=== PATIENT | female | born 1995 | race Caucasian/White ===

== ENCOUNTER 2017-04-24 23:30 | Emergency (ER) | payer OTHER ==
[2017-04-25 01:07] VITALS: BP 116/73; PULSE 100; BMI 28.1
[2017-04-25] MEDS ORDERED: PIPERACILLIN/TAZOB 3.375 GM 3.375 GM in DEXTROSE 5%-WATER - 50 ML IVPB ONE (01:12)
[2017-04-25] MEDS ORDERED: SULFAMETHOXAZOLE/TRIMETHOPRIM 800MG/160MG D.S. TABLET PO ONE (01:12)
--- NOTE | 2017-04-25 01:29 | PDOC ---
History of Present Illness - General History Source: Patient Exam Limitations: No Limitations - History of Present Illness Initial Comments: 04/25/17 01:38 Patient is a 21 year old female with a significant past medical history of asthma and diabetes, who presents to the ED with complaining of right inner thigh pustule that began developing 3 days ago. Patient report noticing the pustule on her right inner thigh 3 days ago with pain. She reports intermittent drainage from the pustule. Patient states she has been to the ED for this complaint once before. Denies fever, chills. Denies chest pain, SOB. Denies nausea, vomiting. Denies contact with sick individuals. Denies any out of state travel. Denies any other symptoms. Allergies: None Social history: No smoking. No alcohol. No illicit drugs. Surgical history: None PMD: None <Aaron Laughlin - Last Filed: 04/25/17 01:38> <Maribeth Hampton - Last Filed: 04/25/17 01:41> <Jimmie Rod - Last Filed: 04/25/17 03:54> - General Chief Complaint: Wound Infection Stated Complaint: INFECTION Time Seen by Provider: 04/25/17 01:13 Past History <Aaron Laughlin - Last Filed: 04/25/17 01:38> - Past Medical History Asthma: Yes Diabetes: Yes (IDDM, PUMP) - Reproductive History (#): 1 Para: 0 - Immunization History Immunization Up to Date: Yes - Suicide/Smoking/Psychosocial Hx Smoking History: Never smoked Hx Alcohol Use: No Drug/Substance Use Hx: No Substance Use Type: None <Maribeth Hampton - Last Filed: 04/25/17 01:41> <Jimmie Rod - Last Filed: 04/25/17 03:54> - Past Medical History Allergies/Adverse Reactions: Allergies Allergy/AdvReac Type Severity Reaction Status Date / Time No Known Allergies Allergy Verified 03/14/16 21:28 Home Medications: Ambulatory Orders Insulin Pump Cartridge [Cartridge Stamped] 1 each SQ DAILY 12/24/13 Clindamycin [Cleocin -] 300 mg PO TID #30 capsule 04/25/17 Ibuprofen 800 mg PO TID #30 tablet 04/25/17 Oxycodone HCl/Acetaminophen [Percocet 5-325 mg Tablet] 1 - 2 tab PO Q6H #20 tablet MDD 4 04/25/17 Review of Systems - Review of Systems Able to Perform ROS?: Yes Comments:: 04/25/17 01:39 CONSTITUTIONAL: Absent: fever, chills, diaphoresis, generalized weakness, malaise, loss of appetite HEENT: Absent: rhinorrhea, nasal congestion, throat pain, throat swelling, difficulty swallowing, mouth swelling, ear pain, eye pain, visual Changes CARDIOVASCULAR: Absent: chest pain, syncope, palpitations, irregular heart rate, lightheadedness , peripheral edema RESPIRATORY: Absent: cough, shortness of breath, dyspnea with exertion, orthopnea, wheezing, stridor, hemoptysis GASTROINTESTINAL: Absent: abdominal pain, abdominal distension, nausea, vomiting, diarrhea, constipation, melena, hematochezia GENITOURINARY: Absent: dysuria, frequency, urgency, hesitancy, hematuria, flank pain, genital pain MUSCULOSKELETAL: Absent: myalgia, arthralgia, joint swelling SKIN: + left leg Pustules Absent: rash, itching, pallor HEMATOLOGIC/IMMUNOLOGIC: Absent: easy bleeding, easy bruising, lymphadenopathy, frequent infections ENDOCRINE: Absent: unexplained weight gain, unexplained weight loss, heat intolerance, cold intolerance NEUROLOGIC: Absent: headache, focal weakness or paresthesias, dizziness, unsteady gait, seizure, mental status changes, bladder or bowel incontinence PSYCHIATRIC: Absent: anxiety, depression, suicidal or homicidal ideation, hallucinations. All Other Systems: Reviewed and Negative <Aaron Laughlin - Last Filed: 04/25/17 01:38> *Physical Exam - Vital Signs Last Vital Signs Temp Pulse Resp BP Pulse Ox 98.7 F 100 H 18 116/73 100 04/25/17 01:05 04/25/17 01:05 04/25/17 01:05 04/25/17 01:05 04/25/17 01:05 - Physical Exam Comments: 04/25/17 01:39 GENERAL: Well developed, well nourished. Awake and alert. No acute distress. HEENT: Normocephalic, atraumatic. PERRLA, EOMI. No conjunctival pallor. Sclera are non- icteric. Moist mucous membranes. Oropharynx is clear. NECK: Supple. Full ROM. No JVD. Carotid pulses 2+ and symmetric, without bruits. No thyromegaly. No lymphadenopathy. CARDIOVASCULAR: Regular rate and rhythm. No murmurs, rubs, or gallops. Distal pulses are 2+ and symmetric. PULMONARY: No evidence of respiratory distress. Lungs clear to auscultation bilaterally. No wheezing, rales or rhonchi. ABDOMINAL: Soft. Non-tender. Non-distended. No rebound or guarding. No organomegaly. Normoactive bowel sounds. MUSCULOSKELETAL Normal range of motion at all joints. No bony deformities or tenderness. No CVA tenderness. EXTREMITIES: +Inner right thigh 2 cm pustule. No cyanosis. No clubbing. No edema. No calf tenderness. SKIN: Warm and dry. Normal capillary refill. No rashes. No jaundice. NEUROLOGICAL: Alert, awake, appropriate. Cranial nerves 2-12 intact. No deficits to light touch and temperature in face, upper extremities and lower extremities. No motor deficits in the in face, upper extremities and lower extremities. Normoreflexic in the upper and lower extremities. Normal speech. Toes are down-going bilaterally. Gait is normal without ataxia. PSYCHIATRIC: Cooperative. Good eye contact. Appropriate mood and affect. <Aaron Laughlin - Last Filed: 04/25/17 01:38> - Vital Signs Last Vital Signs Temp Pulse Resp BP Pulse Ox 98.7 F 100 H 18 116/73 100 04/25/17 01:05 04/25/17 01:05 04/25/17 01:05 04/25/17 01:05 04/25/17 01:05 <Maribeth Hampton - Last Filed: 04/25/17 01:41> - Vital Signs Last Vital Signs Temp Pulse Resp BP Pulse Ox 98.5 F 100 H 18 116/73 100 04/25/17 03:45 04/25/17 01:05 04/25/17 01:05 04/25/17 01:05 04/25/17 01:05 <Jimmie Rod - Last Filed: 04/25/17 03:54> ED Treatment Course - LABORATORY CBC & Chemistry Diagram: 04/25/17 01:30 04/25/17 01:30 <Aaron Laughlin - Last Filed: 04/25/17 01:38> - LABORATORY CBC & Chemistry Diagram: 04/25/17 01:30 04/25/17 01:30 <Maribeth Hampton - Last Filed: 04/25/17 01:41> - LABORATORY CBC & Chemistry Diagram: 04/25/17 01:30 04/25/17 01:30 - ADDITIONAL ORDERS Additional order review: Laboratory Results 04/25/17 01:30 Sodium 136 Potassium 3.9 Chloride 100 Carbon Dioxide 28 Anion Gap 8 BUN 8 D Creatinine 0.7 Creat Clearance w eGFR > 60 Random Glucose 245 H D Calcium 8.7 Total Bilirubin 0.6 D AST 8 L ALT 12 D Alkaline Phosphatase 79 Total Protein 7.1 Albumin 3.5 04/25/17 01:30 RBC 4.55 MCV 86.7 MCHC 33.7 RDW 12.9 MPV 9.7 Neutrophils % 72.9 Lymphocytes % 19.7 Monocytes % 4.5 Eosinophils % 2.4 Basophils % 0.5 - Medications Given in the ED: ED Medications Discontinued Medications Generic Name Dose Route Start Last Admin Trade Name Freq PRN Reason Stop Dose Admin Piperacillin Sod/Tazobactam 50 mls @ 100 mls/hr 04/25/17 01:12 04/25/17 01:45 Sod 3.375 gm/ Dextrose IVPB 04/25/17 01:41 100 mls/hr ONCE ONE Administration Protocol Trimethoprim/Sulfamethoxazole 1 each 04/25/17 01:12 04/25/17 01:45 Bactrim Ds - PO 04/25/17 01:13 1 each ONCE ONE Administration <Jimmie Rod - Last Filed: 04/25/17 03:54> Medical Decision Making - Medical Decision Making 04/25/17 01:41 21 yo female IDDM p/w with rt inner thigh pustule that starting to drain afebrile here plan IV antibiotics/labs <Maribeth Hampton - Last Filed: 04/25/17 01:41> *DC/Admit/Observation/Transfer - Attestations Scribe Attestion: 04/25/17 01:39 Documentation prepared by Aaron Laughlin, acting as certified medical dosimetrist for Maribeth Hampton MD/DO. <Aaron Laughlin - Last Filed: 04/25/17 01:38> <Maribeth Hampton - Last Filed: 04/25/17 01:41> - Discharge Dispostion Admit: No <Jimmie Rod - Last Filed: 04/25/17 03:54> Diagnosis at time of Disposition: Abscess of right thigh - Discharge Dispostion Disposition: HOME Condition at time of disposition: Stable - Prescriptions Prescriptions: Clindamycin [Cleocin -] 300 mg PO TID #30 capsule Ibuprofen 800 mg PO TID #30 tablet Oxycodone HCl/Acetaminophen [Percocet 5-325 mg Tablet] 1 - 2 tab PO Q6H #20 tablet MDD 4 - Patient Instructions Printed Discharge Instructions: DI for Wound Infection
[2017-04-25] MEDS ORDERED: PIPERACILLIN/TAZOB 3.375 GM 50 ML IVPB ONE (01:38)
[2017-04-25] MEDS ORDERED: SULFAMETHOXAZOLE/TRIMETHOPRIM 800MG/160MG D.S. TABLET ONE (01:38)
[2017-04-25 01:44] LABS: BASOPHIL 0.5 % (0-2.0); EOSINOPHIL 2.4 % (0-4.5); MCH 29.2 pg (25.7-33.7); MCHC 33.7 g/dl (32.0-36.0); MEAN CELL VOLUME 86.7 fl (80-96); MEAN PLT VOLUME 9.7 fl (7.5-11.1); NEUTROPHILS 72.9 % (42.8-82.8); PLATELET COUNT 236 K/MM3 (134-434); RDW 12.9 % (11.6-15.6); WHITE BLOOD COUNT 18.1 K/mm3 (4.0-10.0)
[2017-04-25] MEDS ORDERED: ACETAMINOPHEN 325 MG TABLET (FP) ONE (01:44)
[2017-04-25] MEDS ORDERED: MAG HYDROX/AL HYDROX/SIMETH 30 ML UNIT-DOSE CUP ONE (02:09)
[2017-04-25 02:10] LABS: ALBUMIN 3.5 g/dl (3.4-5.0); ALK PHOS 79 U/L (45-117); ANION GAP 8 (8-16); BILIRUBIN,TOTAL 0.6 mg/dL (0.2-1.0); CALCIUM 8.7 mg/dL (8.5-10.1); CO2 28 mmol/L (21-32); CREATININE 0.7 mg/dL (0.55-1.02); GLUCOSE,RANDOM 245 mg/dL (74-106); SGOT/AST 8 U/L (15-37); SGPT/ALT 12 U/L (12-78); TOT PROT 7.1 g/dl (6.4-8.2)
[2017-04-25 03:46] VITALS: TEMP 98.5
--- NOTE | 2017-04-25 03:55 | PDOC ---
*Physical Exam - Vital Signs Last Vital Signs Temp Pulse Resp BP Pulse Ox 98.5 F 100 H 18 116/73 100 04/25/17 03:45 04/25/17 01:05 04/25/17 01:05 04/25/17 01:05 04/25/17 01:05 ED Treatment Course - LABORATORY CBC & Chemistry Diagram: 04/25/17 01:30 04/25/17 01:30 - ADDITIONAL ORDERS Additional order review: Laboratory Results 04/25/17 01:30 Sodium 136 Potassium 3.9 Chloride 100 Carbon Dioxide 28 Anion Gap 8 BUN 8 D Creatinine 0.7 Creat Clearance w eGFR > 60 Random Glucose 245 H D Calcium 8.7 Total Bilirubin 0.6 D AST 8 L ALT 12 D Alkaline Phosphatase 79 Total Protein 7.1 Albumin 3.5 04/25/17 01:30 RBC 4.55 MCV 86.7 MCHC 33.7 RDW 12.9 MPV 9.7 Neutrophils % 72.9 Lymphocytes % 19.7 Monocytes % 4.5 Eosinophils % 2.4 Basophils % 0.5 - Medications Given in the ED: ED Medications Discontinued Medications Generic Name Dose Route Start Last Admin Trade Name Freq PRN Reason Stop Dose Admin Piperacillin Sod/Tazobactam 50 mls @ 100 mls/hr 04/25/17 01:12 04/25/17 01:45 Sod 3.375 gm/ Dextrose IVPB 04/25/17 01:41 100 mls/hr ONCE ONE Administration Protocol Trimethoprim/Sulfamethoxazole 1 each 04/25/17 01:12 04/25/17 01:45 Bactrim Ds - PO 04/25/17 01:13 1 each ONCE ONE Administration *DC/Admit/Observation/Transfer Diagnosis at time of Disposition: Abscess of right thigh - Discharge Dispostion Disposition: HOME Condition at time of disposition: Stable Admit: No - Prescriptions Prescriptions: Clindamycin [Cleocin -] 300 mg PO TID #30 capsule Ibuprofen 800 mg PO TID #30 tablet Oxycodone HCl/Acetaminophen [Percocet 5-325 mg Tablet] 1 - 2 tab PO Q6H #20 tablet MDD 4 - Referrals Referrals: Kendra Sherman MD [Primary Care Provider] - - Patient Instructions Printed Discharge Instructions: DI for Wound Infection - Post Discharge Activity Work/School Note: Back to Work
== END 2017-04-25 04:07 | disposition home or self-care (01) ==
LOC: JER 23:30
DX: L02.415 Cutaneous abscess of right lower limb (principal); E10.9 Type 1 diabetes mellitus without complications; Z79.4 Long term (current) use of insulin; Z96.41 Presence of insulin pump (external) (internal); J45.909 Unspecified asthma, uncomplicated
CPT/HCPCS: 36415; 80053; 85025; 96365; 99282-25

== ENCOUNTER 2017-09-10 17:22 | Emergency (ER) | payer OTHER ==
[2017-09-10 17:39] VITALS: BP 0/0; PULSE 88; TEMP 98.3; BMI 26.9
--- NOTE | 2017-09-10 17:39 | PDOC ---
Rapid Medical Evaluation Time Seen by Provider: 09/10/17 17:35 Medical Evaluation: Allergies Allergy/AdvReac Type Severity Reaction Status Date / Time No Known Allergies Allergy Verified 09/10/17 17:35 09/10/17 17:36 The patient presents with a chief complaint of: had liposuction in the ED on 08/07. Presents for suture removal in her legs. States that the sites are painful. I have performed a brief in-person evaluation of this patient; Pertinent physical exam findings: ambulatory, in no respiratory distress, simple interrupted sutures on L leg, R lower leg and R upper leg. No signs of infection. afebrile, VSS I have ordered the following: nothing The patient will proceed to the ED for further evaluation.
--- NOTE | 2017-09-10 19:00 | PDOC ---
Suture Removal/Wound Check HPI - History of Present Illness Chief Complaint: Suture/Staple Removal (other) Stated Complaint: PAIN Time Seen by Provider: 09/10/17 17:35 History Source: Yes: Patient Exam Limitations: Yes: No Limitations Treated at: Other ED ([facility]) - Previous ED Treatment Type of procedure performed on last visit: Yes: Other (liposuction breast implants) Past History - Past Medical History Allergies/Adverse Reactions: Allergies Allergy/AdvReac Type Severity Reaction Status Date / Time No Known Allergies Allergy Verified 09/10/17 17:35 Home Medications: Ambulatory Orders Insulin Pump Cartridge [Cartridge Stamped] 1 each SQ DAILY 12/24/13 Asthma: Yes COPD: No DVT: No Diabetes: Yes (IDDM, PUMP) - Surgical History Abdominal Surgery: Yes (LIPOSUCTION) - Reproductive History (#): 1 Para: 0 - Immunization History Immunization Up to Date: Yes - Suicide/Smoking/Psychosocial Hx Smoking History: Never smoked Have you smoked in the past 12 months: No Information on smoking cessation initiated: No Hx Alcohol Use: No Drug/Substance Use Hx: No Substance Use Type: None Suture Removal/Wound Check PE - Physical Exam Laceration/Wound Check Symptoms: reports: Pain. denies: Discharge, Bleeding Comments: 09/10/17 19:03 bilateral legs with simple interrupted sutures to knee, posterior thigh, posterior knee, bilateral elbows and bikini line. no redness Current Severity Level: Mild Maximum Severity Level: Moderate Pain Localization: Diffuse (legs, back of legs) *Review of Systems - Review of Systems Able to Perform ROS?: Yes Constitutional: No: Symptoms Reported HEENTM: No: Symptoms Reported Respiratory: No: Symptoms reported Cardiac (ROS): No: Symptoms Reported ABD/GI: No: Symptoms Reported : No: Symptoms Reported Musculoskeletal: No: Symptoms Reported Integumentary: Yes: Symptoms Reported Neurological: No: Symptoms reported Procedures - Additional Procedures Progress: 09/10/17 19:05 suture removal to legs, bikini, bilateral elbows Medical Decision Making - Medical Decision Making 09/10/17 18:58 cc: here for suture removal s/p liposuction in [facility] on Aug 07, 2017. pt has varies sites of sutures pt has no fever no chills , feels soreness *DC/Admit/Observation/Transfer Diagnosis at time of Disposition: Visit for suture removal - Discharge Dispostion Disposition: HOME Condition at time of disposition: Good - Referrals Referrals: Kendra Sherman MD [Primary Care Provider] - - Patient Instructions Printed Discharge Instructions: DI for Suture Removal Additional Instructions: wash areas with soap and water as per regular routine follow up with your primary care doctor for any concerns - Post Discharge Activity
== END 2017-09-10 19:01 | disposition home or self-care (01) ==
LOC: JERFT 17:22
DX: Z48.02 Encounter for removal of sutures (principal); E10.9 Type 1 diabetes mellitus without complications; Z79.4 Long term (current) use of insulin; Z96.41 Presence of insulin pump (external) (internal)
CPT/HCPCS: 99281-25

== ENCOUNTER 2018-07-05 14:14 | Emergency (ER) | payer OTHER ==
--- NOTE | 2018-07-05 14:43 | PDOC ---
Rapid Medical Evaluation Time Seen by Provider: 07/05/18 14:42 Medical Evaluation: Allergies Allergy/AdvReac Type Severity Reaction Status Date / Time No Known Allergies Allergy Verified 09/10/17 17:35 07/05/18 14:42 I have performed a brief in-person evaluation of this patient. The patient presents with a chief complaint of:R toothache x 3 days. H/o IDDM Pertinent physical exam findings:deferred to FT I have ordered the following:nothing The patient will proceed to the ED for further evaluation. Discharge Disposition - Diagnosis Pain, dental - Referrals - Patient Instructions - Post Discharge Activity
[2018-07-05 14:45] VITALS: BP 99/56; PULSE 83; TEMP 97.8; BMI 26.5
[2018-07-05] MEDS ORDERED: IBUPROFEN 400 MG TABLET (FP) PO ONE ×2 (15:38→15:40)
--- NOTE | 2018-07-05 15:40 | PDOC ---
History of Present Illness - General Chief Complaint: Pain Stated Complaint: TOOTHACHE Time Seen by Provider: 07/05/18 14:42 History Source: Patient Exam Limitations: No Limitations - History of Present Illness Initial Comments: 07/05/18 18:54 pt c/o pain to right side jaw top and bottom wisdom teeth impacted for 2-3 weeks. Pt has no fever Severity: mild Past History - Past Medical History Allergies/Adverse Reactions: Allergies Allergy/AdvReac Type Severity Reaction Status Date / Time No Known Allergies Allergy Verified 07/05/18 14:42 Home Medications: Ambulatory Orders Insulin Pump Cartridge [Cartridge Stamped] 1 each SQ DAILY 12/24/13 Ibuprofen 800 mg PO TID PRN #21 tablet 07/05/18 Penicillin V Potassium [Pen Vee K -] 250 mg PO QID #28 tablet 07/05/18 Asthma: Yes COPD: No DVT: No Diabetes: Yes (IDDM, PUMP) - Surgical History Abdominal Surgery: Yes (LIPOSUCTION) - Reproductive History (#): 1 Para: 0 - Immunization History Immunization Up to Date: Yes - Suicide/Smoking/Psychosocial Hx Smoking History: Never smoked Have you smoked in the past 12 months: No Hx Alcohol Use: No Drug/Substance Use Hx: No Substance Use Type: None *Physical Exam - Vital Signs Last Vital Signs Temp Pulse Resp BP Pulse Ox 97.8 F 83 16 99/56 L 98 07/05/18 14:43 07/05/18 14:43 07/05/18 14:43 07/05/18 14:43 07/05/18 14:43 - Physical Exam General Appearance: Yes: Nourished, Appropriately Dressed HEENT: positive: EOMI, [place], TMs Normal, Other (bilteral impacted upper and lower wisdom teeth right side, neg abscess, neg erythema, ttpm FROM of the jaw ) Extremity: positive: Normal Capillary Refill, Normal Inspection Integumentary: positive: Normal Color, Dry, Warm Moderate Sedation - Procedure Monitoring Vital Signs: Procedure Monitoring Vital Signs Temperature 97.8 F 07/05/18 14:43 Pulse Rate 83 07/05/18 14:43 Respiratory Rate 16 07/05/18 14:43 Blood Pressure 99/56 L 07/05/18 14:43 O2 Sat by Pulse Oximetry (%) 98 07/05/18 14:43 *DC/Admit/Observation/Transfer Diagnosis at time of Disposition: Pain, dental, Impacted teeth - Discharge Dispostion Disposition: HOME Condition at time of disposition: Good - Prescriptions Prescriptions: Ibuprofen 800 mg PO TID PRN #21 tablet PRN Reason: Pain Penicillin V Potassium [Pen Vee K -] 250 mg PO QID #28 tablet - Referrals [facility] Kendra Sherman MD [Primary Care Provider] - - Patient Instructions Additional Instructions: follow up with your dentist call today to make appointment take the medication as prescribed avoid any hot or cold beverages or food as this can make pain worse apply a warm compress to the right side of your face for 20 minutes every couple of hours gargle with warm salt water 4-5 times a day - Post Discharge Activity
== END 2018-07-05 15:46 | disposition home or self-care (01) ==
LOC: JERFT 14:14
DX: K08.89 Other specified disorders of teeth and supporting structures (principal); K01.1 Impacted teeth
CPT/HCPCS: 99281-25

== ENCOUNTER 2019-05-03 20:57 | Emergency (ER) | payer OTHER ==
[2019-05-03 21:08] VITALS: BMI 24.4
--- NOTE | 2019-05-03 23:21 | PDOC ---
History of Present Illness - General History Source: Patient Exam Limitations: No Limitations - History of Present Illness Initial Comments: 05/03/19 23:14 Patient is a 23 year old female with h/o DM type I, liposuction, breast augmentation with recent breast reduction on 04/14/[address] c/o b/l breast pain, worse on the right. Patient states started to have pain yesterday, with discharge on the right side, swelling. States has been taking motrin 800mg with no relief of symptoms, last dose was 6 PM. Was on antibx post surgery until 04/26/19 not currently on antibx. Denies fever, chills, nausea, vomiting. Has been monitoring bs and last was at 9pm, GBM 123. PMHX: as above PSOCHX: neg cig, drug, etoh' ALL: NKDA GENERAL/CONSTITUTIONAL: No fever or chills. No weakness. No weight change. HEAD, EYES, EARS, NOSE AND THROAT: No change in vision. No ear pain or discharge. No sore throat. CARDIOVASCULAR: No chest pain or shortness of breath. RESPIRATORY: No cough, wheezing, or hemoptysis. GASTROINTESTINAL: No nausea, vomiting, diarrhea or constipation. No rectal bleeding. GENITOURINARY: No dysuria, frequency, or change in urination. MUSCULOSKELETAL: No joint or muscle swelling or pain. No neck or back pain. SKIN AND BREASTS: No rash or easy bruising. NEUROLOGIC: No headache, vertigo, loss of consciousness, or loss of sensation. PSYCHIATRIC: No depression or anxiety. ENDOCRINE: No increased thirst. No abnormal weight change. HEMATOLOGIC/LYMPHATIC: No anemia, easy bleeding, or history of blood clots. ALLERGIC/IMMUNOLOGIC: No hives or skin allergy. No latex allergy. GENERAL: The patient is awake, alert, and fully oriented, in no acute distress. HEAD: Normal with no signs of trauma. EYES: Pupils equal, round and reactive to light, extraocular movements intact, sclera anicteric, conjunctiva clear. ENT: Ears normal, nares patent, oropharynx clear without exudates. Moist mucous membranes. NECK: Normal range of motion, supple without lymphadenopathy, JVD, or masses. LUNGS: Breath sounds equal, clear to auscultation bilaterally. No wheezes, and no crackles. HEART: Regular rate and rhythm, normal S1 and S2 without murmur, rub. ABDOMEN: Soft, nontender, normoactive bowel sounds. No guarding, no rebound. No masses. EXTREMITIES: Normal range of motion, no edema. No clubbing or cyanosis. No cords, erythema, or tenderness. NEUROLOGICAL: Cranial nerves II through XII grossly intact. Normal speech, normal gait. PSYCH: Normal mood, normal affect. SKIN: Warm, Dry, normal turgor, no rashes or lesions noted. BREAST: (+) surgical scars b/l breast, right breast mild swelling, tenderness to palp, distal portion of midline scar with necrotic tissue no discharge noted. <Iván Amaya - Last Filed: 05/04/19 01:57> <Ava eJsus - Last Filed: 05/04/19 06:11> - General Chief Complaint: Pain Stated Complaint: BREAST PAIN Time Seen by Provider: 05/03/19 22:24 Past History - Past Medical History Asthma: Yes COPD: No DVT: No Diabetes: Yes (IDDM, PUMP) - Surgical History Abdominal Surgery: Yes (LIPOSUCTION) - Reproductive History (#): 1 Para: 0 - Immunization History Immunization Up to Date: Yes - Psycho Social/Smoking Cessation Hx Smoking History: Never smoked Have you smoked in the past 12 months: No Hx Alcohol Use: No Drug/Substance Use Hx: No Substance Use Type: None <Iván Amaya - Last Filed: 05/04/19 01:57> <Ava Jesus - Last Filed: 05/04/19 06:11> - Past Medical History Allergies/Adverse Reactions: Allergies Allergy/AdvReac Type Severity Reaction Status Date / Time No Known Allergies Allergy Verified 05/04/19 00:38 Home Medications: Ambulatory Orders Insulin Pump Cartridge [Cartridge Stamped] 1 each SQ DAILY 12/24/13 Clindamycin [Cleocin -] 300 mg PO Q6HPO #28 capsule 05/04/19 *Physical Exam - Vital Signs Last Vital Signs Temp Pulse Resp BP Pulse Ox 98.6 F 81 19 111/63 100 05/03/19 21:05 05/03/19 21:05 05/03/19 21:05 05/03/19 21:05 05/03/19 21:05 <Iván Amaya - Last Filed: 05/04/19 01:57> - Vital Signs Last Vital Signs Temp Pulse Resp BP Pulse Ox 98.6 F 81 19 111/63 100 05/03/19 21:05 05/03/19 21:05 05/03/19 21:05 05/03/19 21:05 05/03/19 21:05 <JesusAva - Last Filed: 05/04/19 06:11> ED Treatment Course - LABORATORY CBC & Chemistry Diagram: 05/03/19 23:45 05/04/19 01:11 <Iván Amaya - Last Filed: 05/04/19 01:57> - LABORATORY CBC & Chemistry Diagram: 05/03/19 23:45 05/04/19 01:11 - ADDITIONAL ORDERS Additional order review: Laboratory Results 05/04/19 05/03/19 05/03/19 01:11 23:45 23:40 Sodium 144 Cancelled Potassium 4.9 Cancelled Chloride 111 H Cancelled Carbon Dioxide 27 Cancelled Anion Gap 6 L Cancelled BUN 13.7 Cancelled Creatinine 0.8 Cancelled Est GFR (CKD-EPI)AfAm 118.76 Cancelled Est GFR (CKD-EPI)NonAf 102.47 Cancelled Random Glucose 207 H Cancelled Calcium 8.1 L Cancelled Total Bilirubin 0.2 Cancelled AST 30 Cancelled ALT 20 Cancelled Alkaline Phosphatase 57 Cancelled Total Protein 5.9 L Cancelled Albumin 3.0 L Cancelled Urine HCG, Qual Negative 05/03/19 23:45 RBC 4.22 MCV 88.2 MCHC 33.4 RDW 13.7 MPV 9.6 Neutrophils % 43.7 D Lymphocytes % 42.7 H D Monocytes % 7.5 Eosinophils % 5.8 H D Basophils % 0.3 - Medications Given in the ED: ED Medications Discontinued Medications Generic Name Dose Route Start Last Admin Trade Name Freq PRN Reason Stop Dose Admin Ketorolac Tromethamine 30 mg 05/04/19 00:54 05/04/19 00:58 Toradol Injection - IVPUSH 05/04/19 00:55 30 mg ONCE ONE Administration Morphine Sulfate 2 mg 05/03/19 23:23 05/03/19 23:55 Morphine Injection - IVPUSH 05/03/19 23:24 2 mg ONCE ONE Administration Sodium Chloride 1,000 ml 05/03/19 23:24 05/03/19 23:55 Normal Saline - IV 05/03/19 23:25 1,000 ml ONCE ONE Administration <Ava Jesus - Last Filed: 05/04/19 06:11> Medical Decision Making - Medical Decision Making 05/03/19 23:14 Patient is a 23 year old female with h/o DM type I, liposuction, breast augmentation with recent breast reduction on 04/14/[address] c/o b/l breast pain, worse on the right. Patient states started to have pain yesterday, with discharge on the right side, swelling. States has been taking motrin 800mg with no relief of symptoms, last dose was 6 PM. Was on antibx post surgery until 04/26/19 not currently on antibx. Denies fever, chills, nausea, vomiting. Has been monitoring bs and last was at 9pm, GBM 123. Insulin-dependent diabetic with recent surgery concerns for abscess on the right breasts. Labs, CT scan with IV contrast. Morphine for pain Reassess 05/04/19 00:57 H and still complains of pain will give Toradol 30 mg IV. No Acute findings on lab pending cmp. 05/04/19 01:56 wound culture sent 05/04/19 01:[address] scan <Iván Amaya - Last Filed: 05/04/19 01:57> - Medical Decision Making 05/04/19 02:33 Patient Name: NEREYDA GANDARA THIS IS A PRELIMINARY REPORT FROM [facility] DATE OF SERVICE: 2019-05-04 01:58:44 IMAGES: [id number] EXAM: CHEST CT WITH CONTRAST HISTORY: Breast pain COMPARISON: None. FINDINGS: Clear lungs No pneumothorax, effusion, or mediastinal lymphadenopathy. Small amount of residual thymic tissue within the anterior mediastinum The aorta and pulmonary arterial branches are unremarkable. The heart is normal in size without evidence of a pericardial effusion. Survey of the upper abdomen demonstrates no acute abnormality. There are bilateral saline breast implants. No abnormal fluid collection to suggest an abscess 05/04/19 06:11 Home with clindamycin <Ava Jesus - Last Filed: 05/04/19 06:11> Discharge <Iván Amaya - Last Filed: 05/04/19 01:57> - Discharge Information Problems reviewed: Yes - Admission No <JesusAva mendenhall - Last Filed: 05/04/19 06:11> - Discharge Information Clinical Impression/Diagnosis: Cellulitis Postoperative external wound disruption Qualifiers: Encounter type: initial encounter Qualified Code(s): T81.31XA - Disruption of external operation (surgical) wound, not elsewhere classified, initial encounter Condition: Stable - Additional Discharge Information Prescriptions: Clindamycin [Cleocin -] 300 mg PO Q6HPO #28 capsule - Patient Discharge Instructions Patient Printed Discharge Instructions: DI for Cellulitis -- Adult
[2019-05-03] MEDS ORDERED: morphine CARPU-JECT 2 MG/1 ML DISP.SYRIN IVPUSH ONE (23:23)
[2019-05-03] MEDS ORDERED: SODIUM CHLORIDE 0.9% 500 ML INFUS.BAG IV ONE (23:24)
[2019-05-03] MEDS ORDERED: MORPHINE SULFATE 2 MG/ML VIAL ONE (23:51)
[2019-05-03 23:54] LABS: BASO % 0.3 % (0-2.0); EOS % 5.8 % (0-4.5); HEMATOCRIT 37.3 % (32.4-45.2); HEMOGLOBIN 12.5 GM/dL (10.7-15.3); LYMPH % 42.7 % (8-40); MCH 29.5 pg (25.7-33.7); MCHC 33.4 g/dl (32.0-36.0); MEAN CELL VOLUME 88.2 fl (80-96); MEAN PLT VOLUME 9.6 fl (7.5-11.1); MONO % 7.5 % (3.8-10.2); NEUT % 43.7 % (42.8-82.8); PLATELET COUNT 331 K/MM3 (134-434); RBC 4.22 M/mm3 (3.60-5.2); RDW 13.7 % (11.6-15.6); WHITE BLOOD COUNT 8.6 K/mm3 (4.0-10.0)
[2019-05-04] MEDS ORDERED: KETOROLAC TROMETHAMINE 30 MG/1 ML VIAL IVPUSH ONE (00:54)
[2019-05-04] MEDS ORDERED: KETOROLAC TROMETHAMINE 30 MG/1 ML VIAL ONE (00:55)
[2019-05-04 01:52] LABS: BILIRUBIN,TOTAL 0.2 mg/dL (0.2-1); BLOOD UREA NITROGEN 13.7 mg/dL (7-18); CALCIUM 8.1 mg/dL (8.5-10.1); CREATININE 0.8 mg/dL (0.55-1.3); POTASSIUM 4.9 mmol/L (3.5-5.1); TOT PROT 5.9 g/dl (6.4-8.2)
[2019-05-04 03:24] VITALS: BP 111/61; PULSE 73; TEMP 98.1
[2019-05-04] MEDS ORDERED: CLINDAMYCIN HCL 150 MG CAPSULE (FP) PO ONE (03:28)
[2019-05-04] MEDS ORDERED: CLINDAMYCIN HCL 150 MG CAPSULE (FP) ONE (03:34)
== END 2019-05-04 03:40 | disposition home or self-care (01) ==
LOC: JER 20:57
PROC: 3E033NZ Introduction of Analgesics, Hypnotics, Sedatives into Peripheral Vein, Percutaneous Approach (ICD-10-PCS; principal; 2019-05-03)
PROC: 3E0333Z Introduction of Anti-inflammatory into Peripheral Vein, Percutaneous Approach (ICD-10-PCS; 2019-05-03)
DX: N61.0 Mastitis without abscess (principal); T81.31XA Disruption of external operation (surgical) wound, not elsewhere classified, initial encounter; E10.9 Type 1 diabetes mellitus without complications; Z79.4 Long term (current) use of insulin; Z96.41 Presence of insulin pump (external) (internal); J45.909 Unspecified asthma, uncomplicated; Z98.890 Other specified postprocedural states
CPT/HCPCS: 36415; 71260-TC; 80053; 84703; 85025; 87070; 87205; 96374; 96375; 99282-25